=== PATIENT | male | born 1965 | race Caucasian/White ===

== ENCOUNTER 2024-04-23 17:10 | Emergency (ER) | payer OTHER, MEDICARE, MEDICAID, SELFPAY ==
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
[2024-04-23 17:25] VITALS: BP 122/77; BP 138/70; PULSE 78; PULSE 86; RESP 18; TEMP 36.8; O2SAT 96; O2SAT 98; BMI 32.1
[2024-04-23 18:10] LABS: MANUAL DIFF FLAG NO
[2024-04-23 18:16] LABS: Prothrombin Time 11.9 SEC (11.1-13.3)
[2024-04-23 18:29] LABS: Alanine Aminotransferase 28 U/L (0-40); Albumin Level 4.3 g/dL (3.5-5.0); Alkaline Phosphatase 53 U/L (39-117); Anion Gap 15 (12-20); Aspartate Amino Transferase 28 U/L (5-37); Bilirubin Direct 0.3 mg/dL (0.0-0.5); Bilirubin Total 0.7 mg/dL (0.0-1.0); Blood Urea Nitrogen 12 mg/dL (9-16); Calcium 9.8 mg/dL (8.4-10.2); Carbon Dioxide 20 mmol/L (22-29); Chloride 109 mmol/L (96-108); Creatinine Clr Calc Pharmacy 74.3; Estimated Glomerular Filt Rate > 60; Ethanol 33 mg/dL; Glucose Random 86 mg/dL (60-115); Lipase 23 U/L (8-78); Magnesium 1.7 mg/dL (1.6-2.6); Potassium 3.7 mmol/L (3.3-5.1); Sodium 140 mmol/L (135-145); Total Protein 6.4 g/dL (6.5-8.0)
[2024-04-23 18:53] LABS: Basophils Percent Auto 0.4 % (0-2); Eosinophils Absolute Auto 0.1 X10*3/uL (0.0-0.4); Eosinophils Percent Auto 2.2 % (0-4); Hematocrit 40.7 % (42.0-52.0); Hemoglobin 15.2 g/dl (14.0-18.0); Imm Gran Abs Auto 0.01 X10*3/uL (0.00-0.03); Imm Gran Pct Auto 0.2 % (0.0-0.4); Lymphocytes Absolute Auto 1.5 X10*3/uL (1.2-4.9); Mean Corpuscular HGB Conc 37.3 g/dl (31.0-36.0); Mean Corpuscular Volume 88.3 fL (80.0-98.0); Mean Platelet Volume 10.4 fL (9.4-12.4); Monocytes Absolute Auto 0.6 X10*3/uL (0.1-1.2); Monocytes Percent Auto 10.9 % (2-11); Neutrophils Absolute Auto 3.2 x10*3/uL (2.0-8.3); Neutrophils Percent Auto 58.3 % (45-73); Platelet Count 116 X10*3/uL (160-400); Red Blood Count 4.61 X10*6/uL (4.60-5.80); Red Cell Distribution Width 11.4 % (11.0-16.0); White Blood Count 5.4 X10*3/uL (4.8-10.8)
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
[2024-04-23 20:02] VITALS: BP 114/59; PULSE 68; RESP 17; O2SAT 96
[2024-04-23 20:05] LABS: Amphetamine Screen Urine Not Detected (Not Detect); Barbiturates, Urine Not Detected (Not Detect); Benzodiazepines Screen Urine Not Detected (Not Detect); Buprenorphine Scr Not Detected (Not Detect); Cannabinoid Screen Urine POSITIVE (Not Detect); Cocaine Screen Urine Not Detected (Not Detect); Fentanyl, urine Not Detected (Not Detect); Methadone Screen, Urine Not Detected (Not Detect); Opiate Screen Urine Not Detected (Not Detect); Oxycodone Screen Urine Not Detected (Not Detect); Phencyclidine Screen Urine Not Detected (Not Detect)
[2024-04-23] MEDS: Diphth,Pertus(ACell),Tet Adult 0.5 ML SYRINGE IM (21:04)
[2024-04-23] MEDS: Lidocaine 4 % Cream KIT 1 APPL TOPICAL (21:04)
[2024-04-23] MEDS: iohexoL 350 MG/ML 100 ML INFUS..BTL 85 ML IV (22:05)
[2024-04-23 22:44] VITALS: BP 113/75; PULSE 63; RESP 17; TEMP 36.5; O2SAT 96
[2024-04-24 01:24] VITALS: BP 125/83; PULSE 54; RESP 18; TEMP 36.7; O2SAT 97
== END 2024-04-24 01:25 | disposition home or self-care (01) ==
PROVIDERS: Physician Assistant; Emergency Provider Internal Medicine
DX: S01.01XA Laceration without foreign body of scalp, initial encounter (principal); S20.212A Contusion of left front wall of thorax, initial encounter; V43.52XA Car driver injured in collision with other type car in traffic accident, initial encounter; R51.9 Headache, unspecified; F10.90 Alcohol use, unspecified, uncomplicated; Y90.1 Blood alcohol level of 20-39 mg/100 ml; Y93.89 Activity, other specified; Y92.488 Other paved roadways as the place of occurrence of the external cause; Y99.9 Unspecified external cause status; Z23 Encounter for immunization
CPT/HCPCS: 12001; 36415; 70450; 71260; 72125; 80048; 80076; 80307; 83690; 83735; 85025; 85610; 90471; 90715; 99284; Q9967